=== PATIENT | male | born 1960 | race Caucasian/White ===

== ENCOUNTER → 2021-09-12 | Outpatient (CLI) | payer OTHER | END | disposition home or self-care (01) | LOC: LAB SHORT 14:40 → LAB 14:40 | DX: R50.9 Fever, unspecified (principal) | CPT/HCPCS: 87086 ==

== ENCOUNTER 2021-09-25 06:54 | Inpatient (IN) | payer OTHER ==
[~2021-09-25] VITALS: Ht 188 cm; Wt 110.8 kg
[2021-09-25 07:46] LABS: Hematocrit 36.5 % (37.0-53.0); Hemoglobin 11.9 g/dL (13.5-17.5); Mean Corpuscular HGB 29.2 pg (26.0-34.0); Mean Corpuscular HGB Conc 32.6 g/dL (31.5-36.5); Mean Corpuscular Volume 90 fL (80-100); Mean Platelet Volume 11.7 fL (9.1-12.4); NRBC ABSOLUTE 0.07 K/mm3 (0.00-0.02); NRBC Auto 0.6 /100 WBC (0.0-0.2); Platelet Count 110 K/mm3 (150-400); RDW Coefficient Variation 15.2 % (11.7-14.2); RDW Standard Deviation 49.1 fL (35.1-46.3); Red Blood Cell Count 4.07 M/mm3 (4.30-5.90); White Blood Cell Count 12.66 K/mm3 (4.00-11.30)
[2021-09-25 08:09] LABS: International Normalized Ratio 1.24; Prothrombin Time Results 12.8 Sec (9.7-11.5)
[2021-09-25 08:14] LABS: Albumin, Blood 3.1 g/dL (3.4-5.0); Albumin/Globulin Ratio 0.7 (0.8-1.8); Bilirubin, Total 1.2 mg/dL (0.1-1.0); Creatinine, Blood 1.82 mg/dL (0.60-1.20); Globulin, Blood 4.7 g/dL (2.2-4.0); Potassium, Blood 4.8 mmol/L (3.5-5.5); Total Protein, Blood 7.8 g/dL (6.4-8.2)
[2021-09-25 08:22] LABS: Influenza A, PCR NEGATIVE (NEGATIVE); Influenza B, PCR NEGATIVE (NEGATIVE); Resp Syncytial Virus, PCR NEGATIVE (NEGATIVE); SARS-Cov-2 (COVID-19) PCR, MMC NEGATIVE (NEGATIVE)
[2021-09-25 08:24] LABS: BAND PERCENT MAN 3 % (0-8); BASOPHILS PERCENT MAN 0 % (0-2); EOSINOPHILS PERCENT MAN 0 % (0-6); LYMPHOCYTES ABSOLUTE MAN 1.64 K/mm3 (0.84-5.20); LYMPHOCYTES PERCENT MAN 13 % (21-46); METAMYELOCYTE ABSOLUTE MAN 0.37 K/mm3 (0.00-0.00); METAMYELOCYTE PERCENT MAN 3 % (0-0); MONOCYTES ABSOLUTE MAN 0.63 K/mm3 (0.16-1.47); MONOCYTES PERCENT MAN 5 % (4-13); MYELOCYTE ABSOLUTE MAN 0.75 K/mm3 (0.00-0.00); MYELOCYTE PERCENT MAN 6 % (0-0); NEUTROPHILS ABSOLUTE MAN 9.24 K/mm3 (1.96-9.15); SEG NEUTROPHILS PERCENT MAN 70 % (41-73); TOTAL CELLS COUNTED 100
[2021-09-25] MEDS ORDERED: SKYRIZI PE150 MG/1 M SQ (13:00)
[2021-09-25] MEDS ORDERED: DIOVAN HCT 1601 EAC2 PO (13:00)
[2021-09-25 13:11] LABS: Hematocrit 34.8 % (37.0-53.0); Hemoglobin 11.7 g/dL (13.5-17.5); Mean Corpuscular HGB 29.2 pg (26.0-34.0); Mean Corpuscular HGB Conc 33.6 g/dL (31.5-36.5); Mean Corpuscular Volume 87 fL (80-100); NRBC ABSOLUTE 0.07 K/mm3 (0.00-0.02); NRBC Auto 0.6 /100 WBC (0.0-0.2); Platelet Count 78 K/mm3 (150-400); RDW Coefficient Variation 15.3 % (11.7-14.2); RDW Standard Deviation 48.5 fL (35.1-46.3); Red Blood Cell Count 4.01 M/mm3 (4.30-5.90); White Blood Cell Count 11.41 K/mm3 (4.00-11.30)
[2021-09-25 13:39] LABS: BAND PERCENT MAN 4 % (0-8); BASOPHILS PERCENT MAN 0 % (0-2); EOSINOPHILS PERCENT MAN 0 % (0-6); LYMPHOCYTES ABSOLUTE MAN 0.68 K/mm3 (0.84-5.20); LYMPHOCYTES PERCENT MAN 6 % (21-46); MONOCYTES ABSOLUTE MAN 0.11 K/mm3 (0.16-1.47); MONOCYTES PERCENT MAN 1 % (4-13); MYELOCYTE ABSOLUTE MAN 0.22 K/mm3 (0.00-0.00); MYELOCYTE PERCENT MAN 2 % (0-0); NEUTROPHILS ABSOLUTE MAN 10.38 K/mm3 (1.96-9.15); SEG NEUTROPHILS PERCENT MAN 87 % (41-73); TOTAL CELLS COUNTED 100
--- NOTE | 2021-09-25 15:06 | NUR ---
PT ADMITTED TO ICU 4 AT 1420 FROM ER. PT ARRIVED ON O2 AT 6L VIA N/C, LEVOPHED AT 3MCG TO LEFT AC. MAP >65 WHEN PT TRANSFERED TO BED HE BACAME SEVERELY DYSPNEIC, PT HAD CYANOTIC/BLUE FINGERS AND TOES BUT WHEN TRANSFERED AND LAYING FLAT CYANOSIS BECAME WORSE TO HANDS AND FACE. PT PALE, COOL, AND DIAPHORETIC ON ADMIT. TEMP READS 95.5. RT CALLED TO BEDSIDE IMMEDIATELY, NRB PLACED AT 100%. DR SANTA CALLED AND AT BEDSIDE SHORTLY AFTER ADMIT. BLADDER SCAN SHOWS 130CC URINE. 2ND SET BLOOD CX DRAWN. AROMATHERAPIST COMPLETED STAT ECHO AT 1500. DR MANDEL CONSULTED. BIPAP AVAILABLE, PT UNABLE TO KIRTI D/T ANXIETY. PRECEDEX ORDERED AND STARTED AT 0.3MCG. DR MANDEL GIVEN FULL UPDATE AND WILL SEE PT SHORTLY. KOCH TEMP PROBE TO BE PLACED. PICC LINE BEING PLACED NOW. PT AND PT'S DAUGHTER WHO IS AT BEDSIDE FULLY UPDATED.
[2021-09-25 16:02] LABS: Source, Urine Foley catheter
[2021-09-25 16:06] LABS: Appearance, Urine Hazy (Clear); Blood, Urine Neg (Neg); Color, Urine Amber (P-Yellow); Glucose Qualitative, Urine Neg (Neg); Ketones, Urine 1+ (Neg); Leukocyte Esterase, Urine 1+ (Neg); Nitrite, Urine Neg (Neg); Protein, Urine 2+ (Neg); Urobilinogen, Urine 2+ (Normal)
--- NOTE | 2021-09-25 16:06 | NUR ---
PICC TO NEELAM, PLACED W/O DIFFICULTY BY NOEMY HIRSCH. 16F KOCH TEMP PROBE CATH PLACED USING UROJET; PLACED W/O DIFF. 100CC DARK U/O. LEVOPHED GTT UP TO 5MCG TO KEEP MAP >65. PRECEDEX WAS STARTED AT 0.3MCG FOR ANXIETY AND INCREASED TO 0.4MCG PT MAY REQUIRE BIPAP. DR MANDEL AT BEDSIDE NOW.
[2021-09-25 16:07] LABS: Bilirubin, Urine 1+ (Neg)
[2021-09-25 16:18] LABS: Bacteria Many /hpf; Red Blood Cells, Urine Rare /hpf (0-2); Squamous Epithelial Cells Not Seen /hpf (Few)
[2021-09-25 16:20] LABS: Transitional Epithelial Cells Rare /hpf (0-Rare)
--- NOTE | 2021-09-25 17:05 | NUR ---
[facility] Pt. request for a Sewer Inspector ICU nurse Madelyn related Pt. request to be visited by a Sewer Inspector. Need for printed circuit photographer is not immenent. Call was made to Father Richardson who will plan to visit Pt. in the morning. Notified ICU nurse confirmation that Father Richardson would visit Pt. in the AM ().
--- NOTE | 2021-09-25 17:50 | NUR ---
LEVOPHED AT 15MCG, EPI STARTED AT 2MCG. PRECEDEX AT 0.4 AND IS HELPING WITH ANXIETY; RESP EFFORT RELAXED. SATS 100% ON OXY AT 15L. AIRVO DISCUSSED W RT AND MAY BE PLACED TONIGHT. BIPAP AT BEDSIDE TO BE USED IF NEEDED. ALBUMIN INFUSING (X3). NS AT 125/HR. VANCO TO BE STARTED. ZOSYN INFUSING.
--- NOTE | 2021-09-25 18:43 | NUR ---
MAP >65 W EPI AT 2MCG, LEVOPHED AT 15MCG. TYLENOL GIVEN FOR BACK DISCOMFORT 3/ (CHRONIC PER PT). PT NOW SLEEPING, APPEARS COMFORTABLE, AWAKENS TO VOICE.
--- NOTE | 2021-09-25 19:33 | NUR ---
ASSUMED PT CARE AT 1900 FROM [facility] PT SLEEPING IN BED, BUT EASILY AROUSABLE TO VERBAL STIMULI. ALERT AND ORIENTED X4; ABLE TO MAKE NEEDS KNOWN. PT APPEARS PALE AND CLAMMY. DENIES SOB AT THIS TIME. LEVOPHED INFUSING AT 15MCG/MIN, EPI AT 2MCG/MIN, PRECEDEX AT 0.4 MCG/KG/HR, AND NS AT 125ML/HR. URINE OUTPUT 45ML/HR IN UROMETER; DARK YELLOW URINE NOTED. PERIPHERAL PULSES ARE FAINT, CAP REFILL <3SEC, SKIN IS COLD TO THE TOUCH. PT IS ON 15L OXYMIZER WITH OXYGEN SATURATIONS 100%. PER REPORT O2 WAS ATTEMPTED TO BE TURNED DOWN AND PT STARTED FEELING SOB; THEREFORE, ORDERS PLACED FOR AIRVO PT APPEARS TO FEEL MORE COMFORTABLE WITH OXYGEN FLOW. CALL LIGHT WITHIN REACH. SEE SHIFT ASSESSMENT
--- NOTE | 2021-09-26 02:10 | NUR ---
DAUGHTER AND DR. GARCIA AT BEDSIDE DAUGHTER MADE THE DECISION TO MAKE PT DNR. PT CURRENTLY INTUBATED AND MAXED OUT ON EPI AND LEVOPHED. VASOPRESSIN GETTING STARTED.
--- NOTE | 2021-09-26 02:12 | NUR ---
PT CONTINUES TO JENNIE; HR 20'S
--- NOTE | 2021-09-26 02:15 | NUR ---
TIME OF CALLED AT 0213. DAUGHTER AT BEDSIDE. SHE TOOK PT'S PHONE, WALLET, AND WATCH. DIDN'T WANT CLOTHING, SHOES, OR GLASSES.
[2021-09-26 02:18] LABS: Hematocrit 31.8 % (37.0-53.0); Hemoglobin 9.7 g/dL (13.5-17.5); Mean Corpuscular HGB 29.7 pg (26.0-34.0); Mean Corpuscular HGB Conc 30.5 g/dL (31.5-36.5); NRBC ABSOLUTE 0.78 K/mm3 (0.00-0.02); NRBC Auto 6.4 /100 WBC (0.0-0.2); RDW Coefficient Variation 16.1 % (11.7-14.2); RDW Standard Deviation 57.1 fL (35.1-46.3); Red Blood Cell Count 3.27 M/mm3 (4.30-5.90); White Blood Cell Count 12.24 K/mm3 (4.00-11.30)
[2021-09-26 02:21] LABS: Mean Corpuscular Volume 97 fL (80-100)
[2021-09-26 02:23] LABS: Platelet Count 46 K/mm3 (150-400)
--- NOTE | 2021-09-26 02:47 | NUR ---
RESPIRATORY DISTRESS/CODE BLUE AT APPROXIMATELY 0130 PT WOKE FROM A SLEEP GRUNTING AND FEELING VERY SOB. PRECEDEX AT THIS TIME WAS AT 0.4 MCG/KG/HR, LEVOPHED AT 12MCG/MIN, AND EPI AT 2MCG/MIN. RUB NOTED TO RIGHT UPPER LOBE, BUT CLEAR T/O ALL OTHER LOBES. PT NSR WITH HR 90'S AT THIS TIME. SBP 150'S. PT VERY PALE, DIAPHORETIC, AND CLAMMY. VERY RESTLESS; THEREFORE, INCREASED PRECEDEX TO 0.5MCG/KG/HR AND ADMINISTERED 2MG OF MORPHINE IV PER ORDERS WITH NO EFFECT. PLACED NON-REBREATHER ON PT AT 15L PER HIS REQUEST; DIFFICULT OBTAINING SPO2. INCREASED PRECEDEX TO 0.7MCG/KG/HR AND CALL MADE TO DR. MANDEL REGARDING CHANGE IN PT'S CONDITION. NEW ORDERS FOR 1-2 MG OF ATIVAN Q3 HOURS PRN. DAUGHTER ALSO CONTACTED AT THIS TIME TO GIVE AN UPDATE IN WHICH SHE STATED SHE WOULD BE HEADED IN TO SEE HER DAD. UPON OBTAINING ATIVAN AND ENTERING ROOM PT HAD BECAME LESS RESPONSIVE AND WAS NOT VENTILATING. AT THIS TIME BAGGING WAS INITIATED WHILE PULSE WAS BEING CHECKED BY FELLOW NURSES. NO PULSE FELT AT THIS TIME; THEREFORE, CPR WAS STARTED PT WAS IN PEA. SEE CODE SHEET FOR MED TITRATIONS AND ADMINISTRATIONS. ED DOC ARRIVED SHORTLY AFTER ROSC, WHICH WAS OBTAINED AFTER ONE ROUND OF CPR. DECISION WAS MADE TO WAIT ON INTUBATION D/T PT'S PROGNOSIS AND PT WANTING HIS DAUGHTER TO MAKE THE DECISION WHETHER HE SHOULD BE INTUBATED OR NOT. PT CONTINUED TO JENNIE AND WAS HYPOTENSIVE WITH BP 49/25. DR. GARCIA AT BEDSIDE AT THIS TIME WITH ORDERS FOR A NS 500CC BOLUS, 1 AMP OF EPI, AND A VASOPRESSIN GTT. AFTER THE AMP OF EPI GIVEN PT WAS INTUBATED BY DR. GARCIA. POST INTUBATION DAUGHTER ARRIVED.
[2021-09-26 03:03] LABS: Albumin, Blood 3.1 g/dL (3.4-5.0); Bilirubin, Total 1.5 mg/dL (0.1-1.0); Calcium, Blood 9.7 mg/dL (8.5-10.1); Creatinine, Blood 2.28 mg/dL (0.60-1.20); Globulin, Blood 3.1 g/dL (2.2-4.0); Total Protein, Blood 6.2 g/dL (6.4-8.2)
[2021-09-26 03:04] LABS: BAND PERCENT MAN 6 % (0-8); BASOPHILS PERCENT MAN 0 % (0-2); EOSINOPHILS ABSOLUTE MAN 0.12 K/mm3 (0.00-0.68); EOSINOPHILS PERCENT MAN 1 % (0-6); LYMPHOCYTES ABSOLUTE MAN 1.71 K/mm3 (0.84-5.20); LYMPHOCYTES PERCENT MAN 14 % (21-46); MONOCYTES ABSOLUTE MAN 0.48 K/mm3 (0.16-1.47); MONOCYTES PERCENT MAN 4 % (4-13); MYELOCYTE ABSOLUTE MAN 0.48 K/mm3 (0.00-0.00); MYELOCYTE PERCENT MAN 4 % (0-0); NEUTROPHILS ABSOLUTE MAN 9.42 K/mm3 (1.96-9.15); SEG NEUTROPHILS PERCENT MAN 71 % (41-73); TOTAL CELLS COUNTED 100
== END 2021-09-26 02:13 | DRG 208 ==
LOC: ER 06:54 → ICUE 10:19 → ERHOLD 10:19 → ICUE 13:01
PROVIDERS: Emergency Medicine; ADMIT Family Medicine
PROC: 5A12012 Performance of Cardiac Output, Single, Manual (ICD-10-PCS; principal; 2021-09-25)
PROC: 02HV33Z Insertion of Infusion Device into Superior Vena Cava, Percutaneous Approach (ICD-10-PCS; 2021-09-25)
PROC: 3E043XZ Introduction of Vasopressor into Central Vein, Percutaneous Approach (ICD-10-PCS; 2021-09-25)
PROC: 0BH17EZ Insertion of Endotracheal Airway into Trachea, Via Natural or Artificial Opening (ICD-10-PCS; 2021-09-25)
PROC: 5A1935Z Respiratory Ventilation, Less than 24 Consecutive Hours (ICD-10-PCS; 2021-09-25)
DX: J96.21 Acute and chronic respiratory failure with hypoxia (principal); N17.9 Acute kidney failure, unspecified; R04.2 Hemoptysis; I75.89 Atheroembolism of other site; Z20.822 Contact with and (suspected) exposure to COVID-19; R57.0 Cardiogenic shock; Z51.5 Encounter for palliative care; E86.0 Dehydration; I27.20 Pulmonary hypertension, unspecified; I50.810 Right heart failure, unspecified; I11.0 Hypertensive heart disease with heart failure; E78.5 Hyperlipidemia, unspecified; Z85.51 Personal history of malignant neoplasm of bladder; Z92.3 Personal history of irradiation; Z92.21 Personal history of antineoplastic chemotherapy; Z98.890 Other specified postprocedural states; Z87.891 Personal history of nicotine dependence; Z79.899 Other long term (current) drug therapy
CPT/HCPCS: 0241U; 36415; 36569; 51702; 71045; 71260; 80053; 81001; 83880; 84145; 84484; 85025; 85610; 85730; 93005; 93010; 93306; 96365-59; 96366-59; 99285-25; A9270; C1751; J0171; J1644; J2060; J2270; J2543; J3370; J7030; J7040; J7050; J7060; P9046; Q9967